=== PATIENT | female | born 1940 | race Caucasian/White ===

== ENCOUNTER → 2017-12-02 | Outpatient (CLI) | payer BC ==
[2017-12-02 12:58] LABS: BASO % 0.6 %; BASO ABS # 0.04 K/uL (0-0.2); EOS % 2.3 %; EOS ABS # 0.15 K/uL (0-0.5); HEMATOCRIT 44.5 % (37-47); HEMOGLOBIN 14.3 g/dL (12.0-16.0); IG# 0.01 K/uL (0.00-0.02); LYMPH % 14.6 %; LYMPH ABS # 0.94 K/uL (1.2-3.4); MEAN CELL VOLUME 93.1 fL (80-100); MEAN CORPUSCULAR HEMOGLOBIN 29.9 pg (25-34); MEAN CORPUSCULAR HGB CONC 32.1 g/dl (32-36); MEAN PLATELET VOLUME 11.2 fL (7.4-10.4); MONO % 8.2 %; MONO ABS # 0.53 K/uL (0.11-0.59); NEUT % 74.1 %; NEUT ABS # 4.77 K/uL (1.4-6.5); PLATELET COUNT 210 K/uL (130-400); RED CELL DISTRIBUTION WIDTH CV 14.1 % (11.5-14.5); RED CELL DISTRIBUTION WIDTH SD 47.9 fL (36.4-46.3); WHITE BLOOD COUNT 6.44 K/uL (4.8-10.8)
[2017-12-02 13:30] LABS: ALBUMIN 4.2 gm/dl (3.4-5.0); ALKALINE PHOSPHATASE 74 U/L (45-117); ALT/SGPT 27 U/L (12-78); AST/SGOT 26 U/L (15-37); BLOOD UREA NITROGEN 20 mg/dl (7-18); CALCIUM 9.1 mg/dl (8.5-10.1); CARBON DIOXIDE 27 mmol/L (21-32); CHOLESTEROL 158 mg/dl (0-200); CREATININE 1.02 mg/dl (0.60-1.20); GLUCOSE 111 mg/dl (70-99); LDL CHOLESTEROL CALCULATED 83 mg/dl; SODIUM 141 mmol/L (136-145); TOTAL PROTEIN 7.1 gm/dl (6.4-8.2)
== END | disposition home or self-care (01) ==
LOC: C.LABMFLN 09:43
PROVIDERS: ATTEND Family Medicine
DX: E78.5 Hyperlipidemia, unspecified (principal); M70.71 Other bursitis of hip, right hip

== ENCOUNTER 2022-07-31 04:57 | Observation (INO) ==
--- NOTE | 2022-07-15 16:11 | PAT Medication Instructions ---
Medication Instructions Date of Service July 15, 2022 Home Medications Medication Instructions Recorded albuterol sulfate 90 mcg/actuation 2 puff inhalation Q6H PRN 03/20/21 aerosol inhaler (ProAir HFA) shortness of breath or wheezing #8.5 grams buspirone 5 mg tablet 10 mg PO BID #120 tabs 09/20/21 hydrocodone 7.5 mg-acetaminophen 1 tab PO Q6H PRN pain #120 tabs 06/10/22 325 mg tablet cyclobenzaprine 10 mg tablet 10 mg PO TID #270 tabs 07/08/22 lisinopril 5 mg tablet See Rx Instructions PO DAILY #60 07/08/22 tabs albuterol sulfate 90 mcg/actuation aerosol inhaler (ProAir HFA) 2 puff inhalation Q6H PRN buspirone 5 mg tablet 10 mg PO BID hydrocodone 7.5 mg-acetaminophen 325 mg tablet 1 tab PO Q6H PRN cyclobenzaprine 10 mg tablet 10 mg PO TID lisinopril 5 mg tablet See Rx Instructions PO DAILY aspirin 81 mg tablet,delayed release 81 mg PO 3XWK brimonidine 0.2 % eye drops 1 drp ophthalmic (eye) BID citalopram 40 mg tablet 40 mg PO QAM clonazepam 1 mg tablet 1 mg PO QAM meclizine 25 mg tablet 12.5 mg PO TID omeprazole 40 mg capsule,delayed release 40 mg PO DAILY PRN pravastatin 10 mg tablet 10 mg PO QAM Continue as directed aspirin 81 mg tablet,delayed release 81 mg PO 3XWK (unless directed otherwise by surgeon) DO NOT take the morning of surgery cyclobenzaprine 10 mg tablet 10 mg PO TID lisinopril 5 mg tablet See Rx Instructions PO DAILY Take morning of surgery With a small sip of water, OTHERWISE NOTHING TO EAT OR DRINK AFTER MIDNIGHT: albuterol sulfate 90 mcg/actuation aerosol inhaler (ProAir HFA) 2 puff inhalation Q6H PRN(use if needed; please bring with you to hospital day of surgery if possible) buspirone 5 mg tablet 10 mg PO BID hydrocodone 7.5 mg-acetaminophen 325 mg tablet 1 tab PO Q6H PRN(if needed) brimonidine 0.2 % eye drops 1 drp ophthalmic (eye) BID citalopram 40 mg tablet 40 mg PO QAM clonazepam 1 mg tablet 1 mg PO QAM meclizine 25 mg tablet 12.5 mg PO TID omeprazole 40 mg capsule,delayed release 40 mg PO DAILY PRN(if needed) pravastatin 10 mg tablet 10 mg PO QAM Take evening before surgery albuterol sulfate 90 mcg/actuation aerosol inhaler (ProAir HFA) 2 puff inhalation Q6H PRN(if needed) buspirone 5 mg tablet 10 mg PO BID hydrocodone 7.5 mg-acetaminophen 325 mg tablet 1 tab PO Q6H PRN(if needed) cyclobenzaprine 10 mg tablet 10 mg PO TID brimonidine 0.2 % eye drops 1 drp ophthalmic (eye) BID meclizine 25 mg tablet 12.5 mg PO TID Other Notes If you have any questions please call us at [phone] or [phone] or [phone] or [phone]
--- NOTE | 2022-07-19 11:59 | Anesthesiology Consultation ---
Date of Service July 19, 2022 Assessment & Plan (1) Encounter for pre-operative examination: - COVID screening: Per assessment on 07/19: No known COVID-19 positive contacts or current COVID-19 related symptoms. Travel screen negative. Patient vaccinated. At surgeon discretion if preop Covid testing being done. - Outpatient joint assessment: Pt currently scheduled for inpatient pathway. If surgeon requests review for outpatient joint pathway, patient is not recommended candidate for outpatient joint program from anesthesia standpoint. - Patient acceptable risk for surgery pending surgeon-ordered cardiology preop evaluation ([facility], appt 07/25). Chart Review Chart Review: Patient seen in Pre Admission Testing Teaching & Discussion Pre-Anesthesia Teaching/Discussion Notes: Instructed NPO after midnight before surgery,except medications with 15 cc of water. Medication instructions provided according to the PAT guidelines. History Surgery Operation Date: 07/31/22 10:15 Proposed Procedures p Right Total Knee Arthroplasty - Marcello Martinez MD Height/Weight Height: 5 ft 5 in Weight: 83.7 kg Allergies Allergy/AdvReac Type Severity Reaction Status Date / Time Penicillins Allergy Intermediate Hives Verified 07/16/22 10:44 Sulfa (Sulfonamide Allergy Intermediate Hives Verified 07/16/22 10:44 Antibiotics) Medications Home Medications Medication Instructions Recorded Confirmed Last Taken albuterol sulfate 90 mcg/actuation 2 puff inhalation Q6H PRN 03/20/21 07/16/22 Unknown aerosol inhaler (ProAir HFA) shortness of breath or wheezing #8.5 grams buspirone 5 mg tablet 10 mg PO BID #120 tabs 09/20/21 07/16/22 Unknown hydrocodone 7.5 mg-acetaminophen 1 tab PO Q6H PRN pain #120 tabs 06/10/22 07/16/22 Unknown 325 mg tablet cyclobenzaprine 10 mg tablet 10 mg PO TID #270 tabs 07/08/22 07/16/22 Unknown lisinopril 5 mg tablet See Rx Instructions PO DAILY #60 07/08/22 07/16/22 Unknown tabs aspirin 81 mg tablet,delayed 81 mg PO 3XWK 07/15/22 07/16/22 Unknown release brimonidine 0.2 % eye drops 1 drp ophthalmic (eye) BID 07/15/22 07/16/22 Unknown citalopram 40 mg tablet 40 mg PO QAM 07/15/22 07/16/22 Unknown clonazepam 1 mg tablet 1 mg PO QAM 07/15/22 07/16/22 Unknown meclizine 25 mg tablet 12.5 mg PO TID 07/15/22 07/16/22 Unknown omeprazole 40 mg capsule,delayed 40 mg PO DAILY PRN Acid Reflux 07/15/22 07/16/22 Unknown release pravastatin 10 mg tablet 10 mg PO QAM 07/15/22 07/16/22 Unknown walker with seat and wheels #1 ea 07/16/22 07/16/22 Unknown Past Medical History Medical History Bursitis of hip, right Cerebral microvascular disease PCP monitoring, plan for future neuro evaluation Chronic back pain Depression with anxiety Glaucoma HTN (hypertension) Hyperlipidemia Macular degeneration Osteoarthritis Vertigo Exercise / Class Metabolic Activity II 4-5 Yardwork/Stairs/Walk up hill (one FS (no CP, no SOB)) Past Family History Family History Son Stroke Daughter Colitis Father Diabetes Mother Colorectal cancer Aunt Breast cancer Grandmother (Maternal) Myocardial infarction Other No family history of adverse response to anesthesia Denies family history of Ovarian cancer Prostate cancer Past Surgical History Surgical History History of arthroscopy of left knee meniscus repair History of bilateral cataract extraction History of bilateral tubal ligation History of carpal tunnel surgery of left wrist History of colonoscopy History of hysterectomy History of surgery gallstones removal (denies cholecystectomy) History of tonsillectomy and adenoidectomy History of tooth extraction all upper teeth removed S/P pericardial window creation 2001 Past Anesthesia History No Hx of Anesthesia Complications and No Family Hx of Anesthesia Complications History of PONV No Hx of PONV and No Hx of Motion Sickness Social History Smoking Status: Never smoker Do You Dip or Chew Tobacco: No Hx Alcohol Use: Yes Alcohol type: wine alcohol intake frequency: holidays/special occasions only Hx Substance Use: No substance use type: does not use Review of Systems Patient denies chest pain, shortness of breath, dyspnea on exertion, fever, chills, cough, wheezing, palpitations. Physical Exam Vital Signs VITALS BP 111/74 P 87 TEMP 99.1 SP02 95%RA RESP 18 PHYSICAL Full cervical extension range of motion. Full TMJ range of motion. TMD 3.5 finger breaths Mallampati Score 1 Dentition: full upper plate Lungs: clear throughout to auscultation Cardiac: regular rate and rhythm, no murmurs noted Spine: normal Carotid arteries: negative bruit Extremities: no edema Lab Results Anesthesia Preop Results Results Anesthesia Widget: WBC 5.68 K/ul (4.8-10.8) 07/11/22 Hgb 15.2 g/dl (12.0-16.0) 07/11/22 Hct 48.0 % (37.0-47.0) H 07/11/22 Plt 150 K/uL (130-400) 07/11/22 Na 142 mmol/L (136-145) 07/11/22 K 4.1 mmol/L (3.5-5.1) 07/11/22 Cl 105 mmol/L (98-107) 07/11/22 CO2 31 mmol/L (21-32) 07/11/22 BUN 19 mg/dl (6-23) 07/11/22 Creat 0.98 mg/dl (0.6-1.2) 07/11/22 Glucose Level 93 mg/dl (70-99(Fasting)) 07/11/22 PT 10.6 Seconds (9.0-12.0) 07/19/22 PTT 29.7 Seconds (21.0-31.0) 07/19/22 INR 1.0 (0.9-1.1) 07/19/22 Urine Color Yellow 07/11/22 Urine Appearance Clear (Clear) 07/11/22 Urine pH 6.5 (4.5-7.5) 07/11/22 Urine Specific Novelty 1.015 (1.000-1.030) 07/11/22 Urine Protein Negative (Negative) 07/11/22 Urine Glucose (UA) Negative (Negative) 07/11/22 Urine Ketones Negative (Negative) 07/11/22 Urine Blood Negative (Negative) 07/11/22 Urine Nitrite Negative (Negative) 07/11/22 Urine Bilirubin Negative (Negative) 07/11/22 Urine Urobilinogen Negative (Negative) 07/11/22 Urine Leukocyte Esterase Trace (Negative) H 07/11/22 Urine WBC (Auto) 1-5 /hpf (0-5) 07/11/22 Urine RBC (Auto) 0-4 /hpf (0-4) 07/11/22 Urine Hyaline Casts (Auto) 0 /lpf (0-5) 07/11/22 Urine Epithelial Cells (Auto) 5-10 /lpf (0-5) H 07/11/22 Urine Bacteria (Auto) Negative (Negative) 07/11/22 Blood Type O Positive 07/19/22 Antibody Screen NEGATIVE 07/19/22 Testing Laboratory Results 07/11/22 WBC 5.68 H/H 15.2/48.0 PLATELETS 150 SODIUM 142 POTASSIUM 4.1 CHLORIDE 105 CO2 31 BUN 19 CREATININE 0.98 GLUCOSE 93 UA negative Electrocardiogram Date: 06/04/22 NSR at 74bpm. High QRS voltage may be normal variant or due to LVE. Inferior infarct, age undetermined. Chest X-Ray Date: 07/19/22 FINDINGS: Lung lungs are mildly diminished. Bibasilar densities likely reflect atelectasis or crowding of vasculature. There is no evidence for pulmonary edema. There is no consolidation. There is no pneumothorax or pleural effusion. There is mild cardiomegaly. IMPRESSION: No acute cardiopulmonary findings. Other Testing Brain MRI (07/08/22) No acute intracranial abnormality is identified. Mild global volume loss. NS cerebral white matter foci of T2/FLAIR hyperintensity, most commonly associated with chronic small vessel disease. COVID-19 Risk Screen Screening Information COVID-19 Screen Date: 07/19/22 Exposure 21 Days Family/Household +COVID Last 21 Days: No Exposure 10 Days Any COVID Exposure Last 10 Days: No Symptoms Last 10 Days Experienced COVID Sx Last 10 Days: No + COVID 0-90 Days COVID + in Last 0-90 Days: No
--- NOTE | 2022-07-30 19:17 | History & Physical Report ---
Date of Service July 30, 2022 Assessment & Plan (1) Primary osteoarthritis of right knee: Plan: Treatment option discussed with patient. She would like to proceed with surgical intervention. Risks, benefits and alternatives to surgery including but not limited to infection, DVT, pain, stiffness, need for revision surgery, damage to blood vessels, damage to nerves, PE, , were discussed with the patient and they wish to proceed. Plan on right total knee arthroplasty scheduled for [facility] on 07/31/[address] Martinez. All questions answered. Plan on aspirin 81mg twice daily for 1 mo post op for DVT prophylaxis. Plan on outpatient PT. Patient will follow up post op. History of Present Illness Chief Complaint: Right knee pain Primary Care Provider: Sarbjit Ngo DO 81yo female with PMHx significant for HTN, high cholesterol, anxiety, back pain who presents with ongoing right knee pain. Pain is interfering with her daily activity. She has failed conservative measures and would like to proceed with surgical intervention. Patient denies headaches, sweats, fevers, chills, double vision, blurred vision, cough, sore throat, dysphagia, chest pain, sob, wheezing, n/v/d/c, numbness, tingling, fatigue, urinary symptoms, mood disorders. ROS positive for right knee pain and stiffness. Allergies Allergy/AdvReac Type Severity Reaction Status Date / Time Penicillins Allergy Intermediate Hives Verified 07/25/22 13:04 Sulfa (Sulfonamide Allergy Intermediate Hives Verified 07/25/22 13:04 Antibiotics) Home Medications Medication Instructions Recorded Confirmed Type albuterol sulfate 90 mcg/actuation 2 puff inhalation Q6H PRN 03/20/21 07/25/22 Rx aerosol inhaler (ProAir HFA) shortness of breath or wheezing #8.5 grams buspirone 5 mg tablet 10 mg PO BID #120 tabs 09/20/21 07/25/22 Rx hydrocodone 7.5 mg-acetaminophen 1 tab PO Q6H PRN pain #120 tabs 06/10/22 07/25/22 Rx 325 mg tablet cyclobenzaprine 10 mg tablet 10 mg PO TID #270 tabs 07/08/22 07/25/22 Rx lisinopril 5 mg tablet See Rx Instructions PO DAILY #60 07/08/22 07/25/22 Rx tabs aspirin 81 mg tablet,delayed 81 mg PO 3XWK 07/15/22 07/25/22 History release brimonidine 0.2 % eye drops 1 drp ophthalmic (eye) BID 07/15/22 07/25/22 History citalopram 40 mg tablet 40 mg PO QAM 07/15/22 07/25/22 History clonazepam 1 mg tablet 1 mg PO QAM 07/15/22 07/25/22 History meclizine 25 mg tablet 12.5 mg PO TID 07/15/22 07/25/22 History omeprazole 40 mg capsule,delayed 40 mg PO DAILY PRN Acid Reflux 07/15/22 07/25/22 History release pravastatin 10 mg tablet 10 mg PO QAM 07/15/22 07/25/22 History walker with seat and wheels #1 ea 07/16/22 07/25/22 Rx Past Med/Surg History Medical History Bursitis of hip, right Cerebral microvascular disease Chronic back pain Depression with anxiety Glaucoma HTN (hypertension) Hyperlipidemia Macular degeneration Osteoarthritis Vertigo Surgical History History of arthroscopy of left knee History of bilateral cataract extraction History of bilateral tubal ligation History of carpal tunnel surgery of left wrist History of colonoscopy History of hysterectomy History of surgery History of tonsillectomy and adenoidectomy History of tooth extraction S/P pericardial window creation Family History Son Stroke Daughter Colitis Father Diabetes Mother Colorectal cancer Aunt Breast cancer Grandmother (Maternal) Myocardial infarction Other No family history of adverse response to anesthesia Denies family history of Ovarian cancer Prostate cancer Social History Smoking Status: Never smoker Second Hand Exposure: Yes (Coworkers smoked); Hx Alcohol Use: Yes Alcohol type: wine Alcohol Intake Frequency: Monthly or Less Alcohol Intake Frequency Comment: very rarely Hx Substance Use: No Preferred Language: Kinyarwanda Communication Ability: Effective Visual Impairment: Limited Hearing Ability: Normal All Around Presser Required: No Beliefs That Will Affect Care: None marital status: Single Current Living Situation: Family Current Living Situation Comment: Lives with daughter current occupational status: retired current occupation: part-time at restaurant How many Children do You have: 3 Feels Safe at Home: Yes Childhood Exposure to Second-Hand Smoke: No Diet Comment: Regular diet caffeine: Yes (coffee, mint tea) during the past year weight has: decreased > 10 lbs Dental Care, Regularly: Yes Physical Activity Frequency: 1-2 Times per Week Seatbelt Use: always Sunscreen Use: Yes Do you think of yourself as: straight/heterosexual Gender Identity: Female Assistive Devices: Denture - Upper and Glasses Review of Systems All systems reviewed & are unremarkable except as noted in HPI & below Physical Exam Constitutional: well developed and well nourished; no acute distress Eyes: PERRL, conjunctivae normal, anicteric sclerae ENMT: external ear and nose normal, oropharynx normal Neck: trachea midline, no thyromegaly Respiratory: normal respiratory effort, lungs clear to auscultation Cardiovascular: RRR, no murmur, no edema Musculoskeletal: Right knee: Varus alignment. Moderate effusion. Medial joint line tenderness. ROM 15-120 degrees. Stable to valgus and varus stress. Skin: no rashes, warm and dry Neurologic: patellar DTR's 2+ bilat, sensation intact Psychiatric: A+Ox3, euthymic affect Results & Data Diagnostic Findings Right knee radiographs demonstrate endstage osteoarthritis, bone on bone medial compartment. There is tricompartmental arthritic changes with periarticular osteophytes and subchondral sclerosis.
[2022-07-31] MEDS ORDERED: ROPIVACAINE 0.5% HCL/PF 150 MG, BUPIVACAINE 0.75% MPF 20 ML, EPINEPHrine 30MG/30ML (OR ... INSTIL SCH (06:00)
[2022-07-31] MEDS ORDERED: dexAMETHasone 4 MG TAB PO SCH (06:00)
[2022-07-31] MEDS ORDERED: TRANEXAMIC ACID 1,000 MG **IV Intra-op IV SCH (06:00)
[2022-07-31] MEDS ORDERED: FAMOTIDINE 20 MG TAB PO SCH (06:00)
[2022-07-31] MEDS ORDERED: LR 500ML BOLUS, THEN 15ML/HR IV SCH (06:00)
[2022-07-31] MEDS ORDERED: METOCLOPRAMIDE HCL 10 MG TABLET PO SCH (06:00)
[2022-07-31] MEDS ORDERED: GABAPENTIN 300 MG CAP PO SCH (06:00)
[2022-07-31] MEDS ORDERED: VANCOMYCIN HCL 1,250 MG in SODIUM CHLORIDE 0.9% 250 ML IV SCH ×2 (06:00→19:45)
[2022-07-31] MEDS ORDERED: TRANEXAMIC ACID 1,000 MG **IV Pre-op IV SCH (06:00)
[2022-07-31] MEDS ORDERED: ACETAMINOPHEN 500 MG TAB PO SCH (06:00)
[2022-07-31] MEDS ORDERED: DEXAMETHASONE SOD INJ 4 MG/ML VIAL ONE (06:22)
[2022-07-31] MEDS ORDERED: BUPIVACAINE 0.5 % 5 MG/1 ML PF 10ML VIAL ONE (06:22)
[2022-07-31] MEDS ORDERED: BUPIVACAINE 0.25% PF 30 ML VIAL ONE (06:22)
[2022-07-31] MEDS ORDERED: EPINEPHrine INJ 1 MG/ML AMP ONE (06:22)
[2022-07-31] MEDS ORDERED: MIDAZOLAM HCL 1 MG/ML 2ML VIAL ONE (06:39)
[2022-07-31] MEDS ORDERED: fentaNYL citrate PF 100 MCG/2 ML VIAL ONE (06:39)
[2022-07-31] MEDS ORDERED: ORTHO JOINT ANESTHETIC ONE (06:49)
[2022-07-31] MEDS ORDERED: fentaNYL citrate PF 100 MCG/2 ML VIAL IV PRN (06:55)
[2022-07-31] MEDS ORDERED: ATROPINE SULFATE 0.1 MG/ML 10ML SYR IV PRN (06:55)
[2022-07-31] MEDS ORDERED: ePHEDrine sulfate 50 MG/ML AMP IV PRN (06:55)
[2022-07-31] MEDS ORDERED: ONDANSETRON INJ 2 MG/ML 2 ML VIAL IV PRN ×2 (06:55→10:39)
--- NOTE | 2022-07-31 07:03 | History & Physical Bridge Note ---
Date of Service July 31, 2022 History & Physical Bridge Note I have examined the patient, reviewed the History & Physical and in the interval since the performance of the History & Physical I have noted the following changes of clinical significance: no changes noted
[2022-07-31] MEDS ORDERED: LIDOCAINE 2% MPF LOCAL 5 ML VIAL ONE (07:23)
[2022-07-31] MEDS ORDERED: PROPOFOL IV EMULSION 10 MG/ML 20 ML VIAL IV ONE (07:23)
[2022-07-31] MEDS ORDERED: PHENYLEPHRINE 100MCG/ML 5ML SYR ONE (08:38)
--- NOTE | 2022-07-31 08:46 | Operative Report ---
Post Operative Report Pre & Post Diagnosis Operation Date: 07/31/22 07:00 Pre-Op Diagnosis: Primary Osteoarthritis or Right Knee Post-Op Diagnosis: Primary Osteoarthritis or Right Knee I identified the patient and participated in the time-out.: Yes Procedure Operation Date: 07/31/22 07:00 Actual Procedures p Right Total Knee Arthroplasty(Right), Camila Acticoat superficial wound VAC- Marcello Martinez MD Surgeon Marcello Martinez MD [employer] PAZ Estimated Blood Loss 5 Findings Consistent with Post-Op Diagnosis Specimens Bone cuts Drains 2 Hemovac Anesthesia Type MAC Spinal Regional Complications none Disposition Disposition: Recovery Room Indications 81-year-old female with progressive osteoarthritis right knee failed conservative management. Patient has tricompartment osteoarthritis [id number] medial compartment with a varus knee. Description of Procedure Patient taken to the operating room the size under spinal MAC regional block anesthesia. Patient was placed supine on the operating table. A pneumatic tourniquet was placed about the right upper thigh. The right lower extremity was prepped and draped in sterile fashion. Knee exam demonstrated 20 degree flexion contracture with flexion to 120 degrees. Stiff knee no pseudolaxity no instability small to moderate effusion. The leg was elevated exsanguinated with an Esmarch bandage and pneumatic tourniquet was raised to 325 millimeters of mercury. Skin incised sharply in longitudinal fashion. Subcutaneous flaps elevated. Incision was made through the medial retinaculum extending up in the mid third of the quadriceps tendon and down to the medial tibial tubercle. Intra-articular findings demonstrated tricompartmental osteoarthritis with chronic degenerative lateral meniscus tear and chronic medial meniscus tear with [id number] medial compartment with anteromedial bone wear. The Niko Niko triathlon total knee arthroplasty system was used. To expose the knee the infrapatellar fat pad was resected. The meniscal remnants and cruciate ligaments were resected. The anterior fat pad over the femur in the area of the anterior flange of the femoral component was resected. Lateral synovial bands release. The femur was exposed. An intramedullary drill hole was made into the canal. A guide lizzy was placed. Distal femoral cutting guide was adjusted to resect a 5 degree valgus cut with 10 millimeters distal femur resected. The knee was extended and a subperiosteal peel lateral release was performed around the patella. Patella width was measured and width was reproduced using a freehand cut technique and a 33 patella component. The 3 drill holes were made and the excess lateral facet was beveled off to prevent any impingement. Attention was taken back to the femur which was exposed with retractors and the femoral sizing guide was pinned in position. The drill holes were placed in 3 of external rotation to match epicondylar axis. Femur sized for a 4 component. The 4-in-1 cutting block was placed and then the anterior posterior and chamfer cuts are made. The tibia was then subluxed. The external tibial cutting guide was just to make a perpendicular cut to the long axis of the tibia below the most deficient bone loss side. A lamina residency coordinator was used and the flexion extension gaps were balanced. All posterior osteophytes removed. All meniscal remnants were resected. The tibia exposed and the trial tibial component size 4 was externally rotated in line with the tibial tubercle and pinned in position. The punch for stem was used. The notch cutting device was centered appropriately and the femoral notch cut was made. The femoral trial was inserted. Trial tibial inserts were placed and size 11 gave balanced ligaments through flexion and extension. Patella tracking was assessed. The patella tracked centrally. The trial components were then removed and the orthomix anesthetic cocktail was injected per protocol. The knee was then copiously irrigated with pulsatile lavage saline solution. Final components were then cemented with Simplex cement. Final components were Zion triathlon size right 4 posterior stabilized femoral component, for primary tibial baseplate, size 4 x 11 mm posterior stabilized X.3 polyethylene tibial bearing insert, S 33 x 9 mm symmetrical patella. After the cement cured the Betadine soak was used for 3 minutes. Further pulsatile lavage irrigation was then performed and 2 Hemovac drains were brought out laterally. The quadriceps tendon and medial retinaculum were closed with figure of 8 #1 Vicryl sutures. The knee was taken through full range of motion and the repair was secure. Knee range of motion was 0 through 130 degrees. The subcutaneous tissues were closed with 2-0 Vicryl sutures. Skin was closed with tico. Sterile dressings were applied. The patient tolerated the procedure well. Urbano Ring, application superficial wound VAC BRANDI was my physician sales assistant who participated as cutter first and was involved in all aspects of the procedure including patient positioning prepping and draping,leg positioning ,soft tissue retraction and instrument management and participated in the closing application of superficial wound VAC and will participate in postoperative care of the patient. The patient tolerated the procedure well. I attest to the content of the Intraoperative Record and any orders documented therein. Any exceptions are noted below.
[2022-07-31] MEDS ORDERED: MAGNESIUM HYDROXIDE SUSP 30 ML UDC PO PRN (10:39)
[2022-07-31] MEDS ORDERED: VANCOMYCIN CONSULT ACTIVE PRN (10:39)
[2022-07-31] MEDS ORDERED: PANTOprazole 40 MG TAB PO PRN (10:39)
[2022-07-31] MEDS ORDERED: METOCLOPRAMIDE HCL INJ 5 MG/ML 2 ML VIAL IV PRN (10:39)
[2022-07-31] MEDS ORDERED: NALOXONE HCL 0.4 MG/1 ML VIAL/CARP IV PRN (10:39)
[2022-07-31] MEDS ORDERED: bisacodyL 10 MG SUPP PR PRN (10:39)
[2022-07-31] MEDS ORDERED: ALBUTEROL HFA 8 GM INHALER INH PRN (10:39)
--- NOTE | 2022-07-31 10:40 | Anesthesiology Progress Note ---
Date of Service July 31, 2022 Anesthesia Post Procedure Vital Signs Vital Signs: Temp Pulse Pulse Resp BP Pulse Ox O2 Del Method 07/31/22 10:20 85 13 123/79 97 Nasal Cannula 07/31/22 10:05 36.3 C L 84 13 120/85 95 Nasal Cannula 07/31/22 09:55 87 20 120/83 97 Nasal Cannula 07/31/22 09:45 87 12 145/85 H 93 Oxymask 07/31/22 09:35 86 14 115/81 98 Oxymask 07/31/22 09:28 36.2 C L 85 13 115/78 97 Oxymask 07/31/22 05:40 36.8 C 91 H 18 152/87 H 94 Room Air O2 Flow Rate 07/31/22 10:20 2 07/31/22 10:05 2 07/31/22 09:55 4 07/31/22 09:45 4 07/31/22 09:35 10 07/31/22 09:28 10 07/31/22 05:40 Pain Intensity Right Knee: Pain Intensity: 7 Transfer of Care Handoff Completed per policy Notes Mental Status: alert / awake / arousable Patient Amnestic to Procedure: Yes Nausea / Vomiting: adequately controlled Pain: adequately controlled Airway Patency, RR, SpO2: stable & adequate BP & HR: stable & adequate Hydration State: stable & adequate Anesthetic Complications: no major complications apparent
--- NOTE | 2022-07-31 10:56 | Hospitalist Consultation ---
Date of Consultation July 31, 2022 Assessment & Plan (1) Status post total right knee replacement: -Pain control, perioperative abx, and DVT PPX per the primary team -The patient is currently afebrile, hemodynamically stable, and stable on RA -No intra-operative complications -Agree with am CBC and BMP tomorrow, we will follow -Thank you for allowing us to participate in the care of this patient, please reach out with any questions or concerns (2) GERD without esophagitis: -Agree with daily pantoprazole (3) HTN (hypertension): -Stable -Can continue daily lisinopril as long as renal function and electrolytes remain stable (4) Vertigo: -Can continue home meclizine, monitor for over-sedation (5) Hyperlipidemia: -Continue statin (6) Depression with anxiety: -Continue Buspar, celexa and Klonopin -Would recommend PCP attempt to wean the patient off of usp Klonopin therapy due to the patient's age Plan The patient was discussed with Dr. Pizano at the time of the consult Supervising Physician Co-Signing Physician Notes I personally saw and examined the patient. I verified all romeo points and agree with Jeanmarie Cutler PA-C with the following exceptions and/or additions: 81 year old female POD#0 right TKA. No acute concerns or questions noted by the patient. O/E HS RRR, no murmurs, Chest CTAB, Abdo SNT, NV intact distal to operation site A/P Pain/VTE/Bowel management per primary orthopedic team GERD - prescribed pantoprazole FRANKIE while here. Can be switched back to PRN at home. No current symptoms but takes omeprazole 1-2 times a week. Vertigo - recommended discussing weaning meclizine with her PCP as this actually makes your balance worse if using regularly History of Present Illness Reason for Consultation: Post-op medical management Requesting Physician: Marcello Martinez MD Attending Physician: Dr. Gallito Pizano History of Present Illness Shanelle is an 81 year old female with a PMH significant for Cerebrovascular Disease, Vertigo, Gait Disturbance, Lumbar Degenerative Disc Disease, Hypertension, Hyperlipidemia, Depression, Anxiety, and Osteoarthritis who presented to the [facility] OR on 07/31/22 for elective right Right Total Knee Arthroplasty with Dr. Martinez. Per review of the patient's vitals, she has been afebrile, hemodynamically stable, and is currently stable on 1L NC. Per the operative report, there were no reported intraoperative complications, EBL was listed as 5 cc, and anesthesia was listed as "[facility]". At the time of the exam the patient was resting in bed in no acute distress. She is still fatigued from the procedure but is awake and oriented. She has no complaints at the time of the exam. She denies a hx of JOSEPH or needing home O2 or HS CPAP/BiPAP and was never a smoker. I was able to turn her O2 off and she remained stable on RA. She confirms that she took her am dose of lisinopril this morning before coming to the hospital. Please refer to Dr. Pizano's attestation for any changes to the treatment plan Allergies Allergy/AdvReac Type Severity Reaction Status Date / Time Penicillins Allergy Intermediate Hives Verified 07/31/22 05:27 Sulfa (Sulfonamide Allergy Intermediate Hives Verified 07/31/22 05:27 Antibiotics) Home Medications Medication Instructions Recorded Confirmed Type albuterol sulfate 90 mcg/actuation 2 puff inhalation Q6H PRN 03/20/21 07/31/22 Rx aerosol inhaler (ProAir HFA) shortness of breath or wheezing #8.5 grams buspirone 5 mg tablet 10 mg PO BID #120 tabs 09/20/21 07/31/22 Rx hydrocodone 7.5 mg-acetaminophen 1 tab PO Q6H PRN pain #120 tabs 06/10/22 07/31/22 Rx 325 mg tablet cyclobenzaprine 10 mg tablet 10 mg PO TID #270 tabs 07/08/22 07/31/22 Rx lisinopril 5 mg tablet See Rx Instructions PO DAILY #60 07/08/22 07/31/22 Rx tabs aspirin 81 mg tablet,delayed 81 mg PO WK 07/15/22 07/31/22 History release brimonidine 0.2 % eye drops 1 drp ophthalmic (eye) BID 07/15/22 07/31/22 History citalopram 40 mg tablet (Celexa) 40 mg PO QAM 07/15/22 07/31/22 History clonazepam 1 mg tablet (Klonopin) 1 mg PO QAM 07/15/22 07/31/22 History meclizine 25 mg tablet 12.5 mg PO TID 07/15/22 07/31/22 History omeprazole 40 mg capsule,delayed 40 mg PO DAILY PRN Acid Reflux 07/15/22 07/31/22 History release pravastatin 10 mg tablet 10 mg PO QAM 07/15/22 07/31/22 History walker with seat and wheels #1 ea 07/16/22 07/25/22 Rx Patient History Medical History Bursitis of hip, right Cerebral microvascular disease Chronic back pain Depression with anxiety Glaucoma HTN (hypertension) Hyperlipidemia Macular degeneration Osteoarthritis Vertigo Surgical History History of arthroscopy of left knee History of bilateral cataract extraction History of bilateral tubal ligation History of carpal tunnel surgery of left wrist History of colonoscopy History of hysterectomy History of surgery History of tonsillectomy and adenoidectomy History of tooth extraction S/P pericardial window creation Family History Son Stroke Daughter Colitis Father Diabetes Mother Colorectal cancer Aunt Breast cancer Grandmother (Maternal) Myocardial infarction Other No family history of adverse response to anesthesia Denies family history of Ovarian cancer Prostate cancer Social History Smoking Status: Never smoker Second Hand Exposure: Yes (Coworkers smoked); Do You Dip or Chew Tobacco: No; Tobacco Cessation Education Requested by Patient: No Hx Alcohol Use: Yes Alcohol type: wine Alcohol Intake Frequency: Monthly or Less Alcohol Intake Frequency Comment: very rarely Hx Substance Use: No Preferred Language: Tajik Communication Ability: Effective Visual Impairment: Limited Hearing Ability: Normal Chief Orthoptist Required: No Beliefs That Will Affect Care: None marital status: Single Current Living Situation: Family Current Living Situation Comment: Lives with daughter current occupational status: retired current occupation: part-time at restaurant How many Children do You have: 3 Other Information That Helps Us Care for You: No Feels Safe at Home: Yes Safety Concerns: Feels Safe At This Time Childhood Exposure to Second-Hand Smoke: No Diet Comment: Regular diet caffeine: Yes (coffee, mint tea) during the past year weight has: decreased > 10 lbs Dental Care, Regularly: Yes Physical Activity Frequency: 1-2 Times per Week Seatbelt Use: always Sunscreen Use: Yes Do you think of yourself as: straight/heterosexual Gender Identity: Female Assistive Devices: Walker Physical Exam Physical Exam: Physical Exam: General: In no acute distress, stated age, well-nourished, good hygiene HEENT: Normocephalic, atraumatic, no scleral icterus, pupils around round, symmetrical, and reactive to light, moist mucus membranes, trachea midline, no thyromegaly Chest/Pulm: No respiratory distress, symmetrical chest expansion, clear breath sounds throughout Cardiac: RRR, no murmurs noted Abdomen: Negative for ascites and bruising, normoactive bowel sounds, soft, non-tender to palpation throughout Musculoskeletal: RLE currently in brace with drain in place, no signs of bleeding or infection, patient with intake sensation and motor function in the LE's Extremities: Radial, dorsalis pedis, and posterior tibial pulses are intact and symmetrical, no edema noted in the [facility]'s Skin: Warm, dry, no rashes , lesions, or scars noted Neuro: Alert and oriented to person, place, month, year, and president, no focal defects, no tremors noted Psych: No acute distress, calm and cooperative during the exam Results & Data Results & Data Vital Signs (Past 12 Hours) Vital Signs Temp Pulse Pulse Resp BP Pulse Ox O2 Del Method 07/31/22 10:39 36.6 C 84 16 128/82 95 Nasal Cannula 07/31/22 10:20 85 13 123/79 97 Nasal Cannula 07/31/22 10:05 36.3 C L 84 13 120/85 95 Nasal Cannula 07/31/22 09:55 87 20 120/83 97 Nasal Cannula 07/31/22 09:45 87 12 145/85 H 93 Oxymask 07/31/22 09:35 86 14 115/81 98 Oxymask 07/31/22 09:28 36.2 C L 85 13 115/78 97 Oxymask 07/31/22 05:40 36.8 C 91 H 18 152/87 H 94 Room Air O2 Flow Rate 07/31/22 10:39 1 07/31/22 10:20 2 07/31/22 10:05 2 04/05/23 09:55 4 07/31/22 09:45 4 07/31/22 09:35 10 07/31/22 09:28 10 07/31/22 05:40 PG Care Time/CCT Total # of Minutes Spent Total Time Spent with Patient: Total time spent is greater than 50% in coordination of care (as documented) at patient's floor/unit and/or counseling patient: Coding [place] [address] IN/OBS CONSULT LVL 3,45M Patient Type Established Medical Decision Making Moderate Complexity Diagnoses Status post total right knee replacement Z96.651 GERD without esophagitis K21.9 HTN (hypertension) I10 Vertigo R42 Hyperlipidemia E78.5 Depression with anxiety F41.8
[2022-07-31] MEDS: SODIUM CHLORIDE 0.9% 1000ML 1,000 ML IV SCH ×2 (11:06→21:20)
--- NOTE | 2022-07-31 11:14 | XRay Report ---
RIGHT KNEE 2 VIEWS History: Right total knee arthroplasty. Degenerative arthritis. Postop. FINDINGS: The patient is status post a right total knee arthroplasty. The hardware is intact. No frac ture or dislocation. Skin tico and surgical drains are in place. IMPRESSION: Right total knee arthroplasty. No evidence for hardware complication. ACT 112: Negative or not required by law. Electronically signed by: Camden Stovall M.D. 07/31/2022 11:13 AM
[2022-07-31] MEDS ORDERED: clonazePAM 1 MG TAB PO PRN (11:21)
[2022-07-31] MEDS: ACETAMINOPHEN 500 MG TAB PO SCH ×2 (14:04→21:02)
[2022-07-31] MEDS: CYCLOBENZAPRINE HCL 10 MG TAB PO SCH ×2 (14:04→21:00)
[2022-07-31] MEDS: HYDROmorphone INJ 0.5 MG/0.5 ML SYR IV PRN (14:07)
[2022-07-31] MEDS: BRIMONIDINE TARTRATE 0.2% 5ML OP SCH (16:35)
[2022-07-31] MEDS: MECLIZINE 12.5 MG TAB PO PRN (19:31)
[2022-07-31] MEDS: oxyCODONE HCL IR 5 MG TAB (IMMEDIATE RELEASE) PO PRN ×2 (19:45→23:50)
[2022-07-31] MEDS ORDERED: VANCOMYCIN HCL 1,250 MG in SODIUM CHLORIDE 0.9% 500 ML IV SCH (19:45)
[2022-07-31] MEDS: ASPIRIN 81 MG ECTAB PO SCH (20:59)
[2022-07-31] MEDS: busPIRone 5 MG TAB PO SCH (20:59)
[2022-07-31] MEDS: lisinopril 5 MG TAB PO SCH (21:00)
[2022-07-31] MEDS: DOCUSATE SODIUM 100 MG CAP PO SCH (21:01)
[2022-07-31] MEDS: SENNA 8.6 MG TAB PO SCH (21:01)
[2022-07-31] MEDS: PANTOprazole 40 MG TAB PO SCH (21:36)
[2022-08-01] MEDS: ACETAMINOPHEN 500 MG TAB PO SCH ×3 (05:02→20:36)
[2022-08-01 07:37] LABS: Hematocrit (blood only) 35.6 % (37.0-47.0); Hemoglobin 11.6 g/dl (12.0-16.0); Mean Corpuscular Hgb Conc 32.6 g/dL (32.0-36.0); Mean Platelet Volume 11.3 fL (9.4-12.4); Platelet Count 199 K/uL (130-400); RDW Standard Deviation 45.8 fL (36.4-46.3); White Blood Count 14.09 K/ul (4.8-10.8)
[2022-08-01] MEDS: BRIMONIDINE TARTRATE 0.2% 5ML OP SCH ×2 (07:38→17:04)
[2022-08-01] MEDS: CYCLOBENZAPRINE HCL 10 MG TAB PO SCH ×3 (07:38→20:36)
[2022-08-01] MEDS: busPIRone 5 MG TAB PO SCH ×2 (07:38→20:36)
[2022-08-01] MEDS: CITALOPRAM 40 MG TAB PO SCH (07:38)
[2022-08-01] MEDS: ASPIRIN 81 MG ECTAB PO SCH ×2 (07:38→20:36)
[2022-08-01] MEDS: PRAVASTATIN SOD 10 MG TAB PO SCH (07:39)
[2022-08-01] MEDS: MULTIVITAMIN TAB PO SCH (07:39)
[2022-08-01] MEDS: MECLIZINE 12.5 MG TAB PO PRN (07:39)
[2022-08-01] MEDS: lisinopril 10 MG TAB PO SCH (07:39)
[2022-08-01] MEDS: DOCUSATE SODIUM 100 MG CAP PO SCH ×2 (07:39→20:36)
--- NOTE | 2022-08-01 07:51 | Orthopedic Progress Note ---
Date of Service August 01, 2022 Assessment & Plan (1) Status post total right knee replacement: Plan: Postop day #1 right total knee arthroplasty -PT/OT -DVT prophylaxis: SCDs, teds, aspirin 81 mg twice daily -A.m. labs are pending -Pain management as written -Discharge planning: Plan on discharge when stable. Patient planning on inpatient rehab. Case management consult has been placed. Admission and Anticipated Discharge Date Admission Date: July 31, 2022 Subjective Patient is postop day 1 right total knee arthroplasty. Overall she is doing well this morning. Pain is controlled. Denies chest pain, shortness of breath, nausea/vomiting/diarrhea, headaches or dizziness. She is planning on going to inpatient rehab. Review of Systems Review of Systems: All systems reviewed & are unremarkable except as noted in Subjective Physical Exam Physical Exam: Right knee: Dressing is clean, dry, intact. No calf tenderness. Toes are mobile with good dorsiflexion. Able to straight leg raise. Distally neurovascular status and sensation grossly intact. Results & Data Vital Signs (Past 12 Hours) Vital Signs Temp Pulse Resp BP Pulse Ox O2 Del Method 08/01/22 07:45 36.5 C 86 16 157/95 H 97 Room Air 08/01/22 02:52 36.5 C 87 18 129/84 93 Room Air 07/31/22 22:06 36.5 C 89 16 142/89 H 94 Room Air
[2022-08-01 07:55] LABS: BUN Creatinine Ratio 26.5 (10-20); Calcium 8.7 mg/dl (8.6-10.3); Est GFR (African American) 60.2 ml/min; Est GFR (Non-African American) 51.9 ml/min; Potassium 4.3 mmol/L (3.5-5.1)
[2022-08-01] MEDS: PANTOprazole 40 MG TAB PO SCH (09:04)
[2022-08-01] MEDS: oxyCODONE HCL IR 5 MG TAB (IMMEDIATE RELEASE) PO PRN ×2 (12:15→20:38)
[2022-08-01] MEDS: HYDROmorphone INJ 0.5 MG/0.5 ML SYR IV PRN (17:04)
[2022-08-01] MEDS: lisinopril 5 MG TAB PO SCH (20:36)
[2022-08-01] MEDS: SENNA 8.6 MG TAB PO SCH (20:36)
[2022-08-01] MEDS ORDERED: clonazePAM 1 MG TAB PO SCH (21:00)
[2022-08-02] MEDS: ACETAMINOPHEN 500 MG TAB PO SCH (06:20)
--- NOTE | 2022-08-02 07:07 | Orthopedic Progress Note ---
Date of Service August 02, 2022 Assessment & Plan (1) Status post total right knee replacement: Plan: Postop day #2 right total knee arthroplasty -PT/OT -DVT prophylaxis: SCDs, teds, aspirin 81 mg twice daily -Pain management as written -Discharge planning: Plan on discharge when stable. Patient planning on inpatient rehab. Patient planning on going to [place]. Plan for discharge today. Admission and Anticipated Discharge Date Admission Date: July 31, 2022 Subjective Patient is postop day #2 right total knee arthroplasty. Her pain is controlled. She is doing well this morning. No complaints. Denies chest pain, shortness of breath, nausea/vomiting/diarrhea, lightheadedness or dizziness. Review of Systems Review of Systems: All systems reviewed & are unremarkable except as noted in Subjective Physical Exam Physical Exam: Right knee: Dressing is clean, dry, intact. No calf tenderness. Toes are mobile with good dorsiflexion. Able to straight leg raise. Distally neurovascular status and sensation grossly intact. Constitutional: WD/WN, vitals as above Results & Data Vital Signs (Past 12 Hours) Vital Signs Temp Pulse Resp BP Pulse Ox O2 Del Method 08/01/22 20:33 36.8 C 82 18 130/77 95 Room Air
[2022-08-02] MEDS: oxyCODONE HCL IR 5 MG TAB (IMMEDIATE RELEASE) PO PRN (07:36)
[2022-08-02] MEDS: DOCUSATE SODIUM 100 MG CAP PO SCH (08:33)
[2022-08-02] MEDS: busPIRone 5 MG TAB PO SCH (08:33)
[2022-08-02] MEDS: ASPIRIN 81 MG ECTAB PO SCH (08:33)
[2022-08-02] MEDS: BRIMONIDINE TARTRATE 0.2% 5ML OP SCH (08:33)
[2022-08-02] MEDS: PANTOprazole 40 MG TAB PO SCH (08:34)
[2022-08-02] MEDS: lisinopril 10 MG TAB PO SCH (08:34)
[2022-08-02] MEDS: MULTIVITAMIN TAB PO SCH (08:34)
[2022-08-02] MEDS: CITALOPRAM 40 MG TAB PO SCH (08:34)
[2022-08-02] MEDS: PRAVASTATIN SOD 10 MG TAB PO SCH (08:34)
[2022-08-02] MEDS: CYCLOBENZAPRINE HCL 10 MG TAB PO SCH (08:48)
--- NOTE | 2022-08-02 10:17 | Discharge Summary ---
Date of Service August 02, 2022 Admission HPI Per Admitting Provider 81yo female with PMHx significant for HTN, high cholesterol, anxiety, back pain who presents with ongoing right knee pain. Pain is interfering with her daily activity. She has failed conservative measures and would like to proceed with surgical intervention. Patient denies headaches, sweats, fevers, chills, double vision, blurred vision, cough, sore throat, dysphagia, chest pain, sob, wheezing, n/v/d/c, numbness, tingling, fatigue, urinary symptoms, mood disorders. ROS positive for right knee pain and stiffness. Admission Exam Per Admitting Provider Constitutional: well developed and well nourished; no acute distress Eyes: PERRL, conjunctivae normal, anicteric sclerae ENMT: external ear and nose normal, oropharynx normal Neck: trachea midline, no thyromegaly Respiratory: normal respiratory effort, lungs clear to auscultation Cardiovascular: RRR, no murmur, no edema Musculoskeletal: Right knee: Varus alignment. Moderate effusion. Medial joint line tenderness. ROM 15-120 degrees. Stable to valgus and varus stress. Skin: no rashes, warm and dry Neurologic: patellar DTR's 2+ bilat, sensation intact Psychiatric: A+Ox3, euthymic affect Principal Diagnosis Right knee osteoarthritis Discharge Exam Right knee: Dressing is clean, dry, intact. No calf tenderness. Toes are mobile with good dorsiflexion. Able to straight leg raise. Distally neurovascular status and sensation grossly intact. Constitutional WD/WN, vitals as above Discharge Data Allergies Allergy/AdvReac Type Severity Reaction Status Date / Time Penicillins Allergy Intermediate Hives Verified 07/31/22 05:27 Sulfa (Sulfonamide Allergy Intermediate Hives Verified 07/31/22 05:27 Antibiotics) Consultations 07/26/22 10:56 Consult Hospitalist Routine Procedures Performed Operation Date: 07/31/22 07:00 Actual Procedures p Right Total Knee Arthroplasty(Right) - Marcello Martinez MD Ordered Studies 07/31/22 05:00 US - OR guided needle placemen Routine Hospital Course (1) Status post total right knee replacement: Postop day #2 right total knee arthroplasty -PT/OT -DVT prophylaxis: SCDs, teds, aspirin 81 mg twice daily -Pain management as written -Discharge planning: Plan on discharge when stable. Patient planning on inpatient rehab. Patient planning on going to [place]. Plan for discharge today. Postop day #1 right total knee arthroplasty -PT/OT -DVT prophylaxis: SCDs, teds, aspirin 81 mg twice daily -A.m. labs are pending -Pain management as written -Discharge planning: Plan on discharge when stable. Patient [facility]. Case management consult has been placed. Lab Results 07/31/22 08/01/22 08/01/22 Range/Units Unknown 06:47 06:47 WBC 14.09 H (4.8-10.8) K/ul RBC 4.00 L (4.20-5.40) M/uL Hgb 11.6 L (12.0-16.0) g/dl Hct 35.6 L (37.0-47.0) % MCV 89.0 (80.0-100.0) fL MCH 29.0 (25.0-34.0) pg MCHC 32.6 (32.0-36.0) g/dL RDW Std Deviation 45.8 (36.4-46.3) fL RDW Coeff of John 14.0 (11.5-14.5) % Plt Count 199 (130-400) K/uL MPV 11.3 (9.4-12.4) fL Sodium 138 (136-145) mmol/L Potassium 4.3 (3.5-5.1) mmol/L Chloride 105 (98-107) mmol/L Carbon Dioxide 27 (21-32) mmol/L Anion Gap 6 (3-11) BUN 27 H (6-23) mg/dl Creatinine 1.02 (0.6-1.2) mg/dl Est Cr Clr Drug Dosing 47.0 ml/min Est GFR ( Amer) 60.2 ml/min Est GFR (Non-Af Amer) 51.9 ml/min BUN/Creatinine Ratio 26.5 H (10-20) Glucose 122 H (70-99(Fasting)) mg/dl Calcium 8.7 (8.6-10.3) mg/dl SARS-CoV-2, RNA, NAAT NEGATIVE (NEGATIVE) 08/02/22 Range/Units 08:29 WBC (4.8-10.8) K/ul RBC (4.20-5.40) M/uL Hgb (12.0-16.0) g/dl Hct (37.0-47.0) % MCV (80.0-100.0) fL MCH (25.0-34.0) pg MCHC (32.0-36.0) g/dL RDW Std Deviation (36.4-46.3) fL RDW Coeff of John (11.5-14.5) % Plt Count (130-400) K/uL MPV (9.4-12.4) fL Sodium (136-145) mmol/L Potassium (3.5-5.1) mmol/L Chloride (98-107) mmol/L Carbon Dioxide (21-32) mmol/L Anion Gap (3-11) BUN (6-23) mg/dl Creatinine (0.6-1.2) mg/dl Est Cr Clr Drug Dosing ml/min Est GFR ( Amer) ml/min Est GFR (Non-Af Amer) ml/min BUN/Creatinine Ratio (10-20) Glucose (70-99(Fasting)) mg/dl Calcium (8.6-10.3) mg/dl SARS-CoV-2, RNA, NAAT NEGATIVE (NEGATIVE) Total Time Total Time Spent Total Time Spent (In Minutes): 20 Discharge Plan Discharge Items Patient Disposition: Transfer [facility] Reason For Visit: Osteoarthritis Knee Right Discharge Diagnosis: Right knee osteoarthritis Activity: Per Instructions section Non-emergency contact: Surgeon Call non-emergency contact if: you have any medication questions, your pain is concerning for you, you have a fever, your temperature is above 101, your wound has increased redness and your wound has increased drainage Follow-up/Referrals: Sarbjit Ngo DO [Primary Care Provider] - Diet: Regular Addtl Attending Provider Instructions: ACTIVITY RECOMMENDATIONS: SELF CARE INSTRUCTIONS AFTER TOTAL KNEE REPLACEMENT A. You may need to continue a physical therapy program after discharge from the hospital. There are several options available to you. Your doctor will assist you in selecting the best one for you. 1. An out-patient facility 2 to 3 times a week for therapy or home therapy. 2. Continue working on all exercises taught to you in the hospital. Your goals should be to increase bending of your knee to 90 degrees and beyond and to fully straighten your knee. B. You may progress at your own pace from walking with a walker or crutches to a cane; then to no assistive devices. C. Make walking a part of your daily routine. Be up as much as comfortable with rest periods throughout the day. Rest with leg elevation is very important. Use the ice wrap frequently for the first 3-4 weeks. D. There are no restrictions on activities. You may ride in a car, shop, participate in surfboard designer and all social activities. E. Wear the long elastic stockings (CARINA hose) 20 hours a day for 2 weeks after surgery. They can be removed several times a day for laundering and for a bath. F. You may shower, no tub baths until cleared by your doctor. SPECIAL CARE INSTRUCTIONS: VERY IMPORTANT TO READ AND REVIEW A. There are a few signs you need to watch for after you are home. Call [facility] if you notice any of the followin. Increased severe knee pain. Some pain is expected especially when you exercise. 2. Increased swelling in your leg or knee; pain or swelling of the calf muscle in either lower leg. 3. Any fluid drainage from the incision. 4. Shortness of breath or chest pain. B. Please call [facility] [place] at if you have any concerns or questions about your operation or recovery. The doctor or his nurse will return your call promptly. C. You must take antibiotics before dental work, bladder, bowel or other surgery. Your doctor will provide you with a permanent care to carry describing this precaution. IMPORTANT: * REMEMBER TO TAKE ASPIRIN, 81 MG, TWICE DAILY FOR 4 WEEKS UNLESS OTHERWISE DIRECTED. THIS IS YOUR BLOOD THINNER. * HIGH RISK PATIENTS MAY BE PRESCRIBED A STRONGER BLOOD THINNER. THIS WILL BE PROVIDED AT DISCHARGE. * CALL IF INCREASED PAIN, REDNESS, DRAINAGE OR FEVER GREATER THAT 101. * WEAR CARINA HOSE 20 HOURS PER DAY FOR 2 WEEKS. This is a large suction dressing covering your incision. This will help pull any excess drainage from the wound and allow your incision to heal properly. You may shower with this if you can keep the unit outside of the shower. If any bleeding or leakage is noted please call your doctor's office. This will remain on your incision for 7 days and then should be removed. This can be done yourself or by the home nursing staff if applicable. The entire unit is disposable once removed. Once removed, keep incision clean and dry. If redness or drainage is noted, please call your surgeon. IF INCISION IS LEAKING THROUGH DRESSING, CALL THE OFFICE . FOLLOW UP VISIT: If appointment is not already scheduled: Please call [facility] to make a follow-up appointment for 2 weeks after your surgery at . Stand-Alone Forms: My [facility] Skilled Items Patient informed of condition?: Yes DNR: No Discharge Level of Care: Skilled Communicable Disease: No Discharge Prognosis: Improving Lines: None Urinary Catheter: No Medications and DC Order Prescriptions: New acetaminophen [Tylenol Extra Strength] 500 mg Tablet 1,000 mg PO Q8 Qty: 60 0RF aspirin 81 mg Tablet,Delayed Release (Dr/Ec) 81 mg PO BID Qty: 60 0RF oxycodone 5 mg Tablet 5 - 10 mg PO .Q4h-6h MDD 6 PRN (Reason: pain) Qty: 30 0RF Rx Instructions: Ongoing therapy, Dr. Martinez supervising Continued cyclobenzaprine 10 mg tablet 10 mg PO TID Qty: 270 0RF lisinopril 5 mg tablet See Rx Instructions PO DAILY Qty: 60 2RF Rx Instructions: take 2 tab in am and 1 tab in pm orally daily; albuterol sulfate [ProAir HFA] 90 mcg/actuation HFA aerosol inhaler 2 puff inhalation Q6H PRN (Reason: shortness of breath or wheezing) Qty: 8.5 0RF buspirone 5 mg tablet 10 mg PO BID Qty: 120 2RF (DME) walker with seat and wheels See Rx Instructions .Route .MEDSUPPLY Qty: 1 0RF Rx Instructions: As directed citalopram [Celexa] 40 mg tablet 40 mg PO QAM clonazepam [Klonopin] 1 mg tablet 1 mg PO QAM Rx Instructions: take 1 tablet up to twice daily as needed and one tablet at bedtime PO DAILY; omeprazole 40 mg capsule,delayed release(DR/EC) 40 mg PO DAILY PRN (Reason: Acid Reflux) pravastatin 10 mg tablet 10 mg PO QAM meclizine 25 mg tablet 12.5 mg PO TID Rx Instructions: 25 mg orally 1/2-1 tid prn; brimonidine 0.2 % Drops 1 drp OPHTHALMIC (EYE) BID Rx Instructions: administer approximately 8 hours apart Discontinued hydrocodone-acetaminophen 7.5-325 mg tablet 1 tab PO Q6H PRN (Reason: pain) Qty: 120 0RF Rx Instructions: ok to fill on 06/19/22 aspirin 81 mg tablet,delayed release (DR/EC) 81 mg PO WK Discharge Orders: Discharge Order (Routine); Ordered 08/02/22 Ordered By: Yadiel Ring Admission Data Admit Date/Time: 07/31/22 09:37 Attending Provider: Marcello Martinez Admit Provider: Marcello Martinez Primary Care Provider: Sarbjit Ngo Other Providers: Gallito Sorto [place] Other Interventions: Discharge Summary Assessment (RN) Last Done: 08/02/22 09:10
--- NOTE | 2022-08-02 10:21 | Hospitalist Progress Note ---
Date of Service August 02, 2022 Assessment & Plan (1) Status post total right knee replacement: Plan: -Pain control, perioperative abx, and DVT PPX per the primary team -The patient is currently afebrile, hemodynamically stable, and stable on RA -No intra-operative complications -Thank you for allowing us to participate in the care of this patient, please reach out with any questions or concerns (2) GERD without esophagitis: Plan: -Agree with daily pantoprazole (3) HTN (hypertension): Plan: -Stable -Can continue daily lisinopril as renal function and electrolytes remained stable postoperatively (4) Vertigo: Plan: -Can continue home meclizine, monitor for over-sedation (5) Hyperlipidemia: Plan: -Continue statin (6) Depression with anxiety: Plan: -Continue Buspar, celexa and Klonopin -Would recommend PCP attempt to wean the patient off of fdc Klonopin therapy due to the patient's age Plan Admission and Anticipated Discharge Date Admission Date: July 31, 2022 Subjective Patient feels well. Denies chest pain or shortness of breath Review of Systems Review of Systems: All systems reviewed & are unremarkable except as noted in Subjective Physical Exam Physical Exam: General: Awake, conversant Heart: S1, S2/regular rate and rhythm, no murmur rubs or gallops Lungs: Clear to auscultation bilaterally. Normal effort Abdomen: Soft/nontender/nondistended. No hepatosplenomegaly Extremities: No clubbing/cyanosis. No edema Behavior: Appropriate, cooperative Results & Data Results & Data Vital Signs (Past 12 Hours) Vital Signs Temp Pulse Resp BP Pulse Ox O2 Del Method 08/02/22 07:12 36.7 C 85 16 128/76 95 Room Air PG Care Time/CCT Total # of Minutes Spent Total Time Spent with Patient: Total time spent is greater than 50% in coordination of care (as documented) at patient's floor/unit and/or counseling patient: Coding Level of Care Code 95749 SUB INP/OBS CARE 2/35MIN Diagnoses Status post total right knee replacement Z96.651 GERD without esophagitis K21.9 HTN (hypertension) I10 Vertigo R42 Hyperlipidemia E78.5 Depression with anxiety F41.8
== END 2022-08-02 10:15 ==
LOC: ASU 04:57 → 3E 04:57

== ENCOUNTER 2023-06-11 09:01 | Observation (INO) ==
--- NOTE | 2023-05-15 14:54 | PAT Medication Instructions ---
Medication Instructions Date of Service May 15, 2023 Home Medications Medication Instructions Recorded albuterol sulfate 90 mcg/actuation 2 puff inhalation Q6H PRN 03/20/21 aerosol inhaler (ProAir HFA) shortness of breath or wheezing #8.5 grams buspirone 5 mg tablet 10 mg (2 x 5 mg) PO BID #120 tabs 09/20/21 walker with seat and wheels #1 ea 07/16/22 lisinopril 5 mg tablet 5 mg PO DAILY #60 tabs 09/10/22 mupirocin 2 % topical ointment 1 applic topical BID #22 grams 09/10/22 cyclobenzaprine 10 mg tablet 10 mg PO TID #270 tabs 03/17/23 meclizine 25 mg tablet 12.5 mg (1/2 x 25 mg) PO TID #30 03/17/23 tabs clonazepam 1 mg tablet (Klonopin) 1 mg PO QAM #30 tabs 04/15/23 hydrocodone 7.5 mg-acetaminophen 1 tab PO Q6H PRN pain #120 tabs 04/17/23 325 mg tablet albuterol sulfate 90 mcg/actuation aerosol inhaler (ProAir HFA) 2 puff inhalation Q6H PRN buspirone 5 mg tablet 10 mg (2 x 5 mg) PO BID brimonidine 0.2 % eye drops 1 drp ophthalmic (eye) BID citalopram 40 mg tablet (Celexa) 40 mg PO QAM omeprazole 40 mg capsule,delayed release 40 mg PO DAILY PRN pravastatin 10 mg tablet 10 mg PO QAM aspirin 81 mg tablet,delayed release 81 mg PO UD lisinopril 5 mg tablet 5 mg PO DAILY mupirocin 2 % topical ointment 1 applic topical BID cyclobenzaprine 10 mg tablet 10 mg PO TID meclizine 25 mg tablet 12.5 mg (1/2 x 25 mg) PO TID clonazepam 1 mg tablet (Klonopin) 1 mg PO QAM acetaminophen 500 mg tablet (Tylenol Extra Strength) 1,000 mg PO Q8 PRN hydrocodone 7.5 mg-acetaminophen 325 mg tablet 1 tab PO Q6H PRN nystatin 100,000 unit/gram topical cream 1 applic topical BID PRN CBD Gummy 1 dose PO HS ASK your prescriber and surgeon aspirin 81 mg tablet,delayed release 81 mg PO UD STOP taking 24 hours before surgery mupirocin 2 % topical ointment 1 applic topical BID nystatin 100,000 unit/gram topical cream 1 applic topical BID PRN CBD Gummy 1 dose PO HS DO NOT take the morning of surgery lisinopril 5 mg tablet 5 mg PO DAILY Take morning of surgery With a small sip of water, OTHERWISE NOTHING TO EAT OR DRINK AFTER MIDNIGHT: albuterol sulfate 90 mcg/actuation aerosol inhaler (ProAir HFA) 2 puff inhalation Q6H PRN(use if needed; please bring with you to hospital day of surgery if possible) buspirone 5 mg tablet 10 mg (2 x 5 mg) PO BID brimonidine 0.2 % eye drops 1 drp ophthalmic (eye) BID citalopram 40 mg tablet (Celexa) 40 mg PO QAM omeprazole 40 mg capsule,delayed release 40 mg PO DAILY PRN(if needed) pravastatin 10 mg tablet 10 mg PO QAM cyclobenzaprine 10 mg tablet 10 mg PO TID meclizine 25 mg tablet 12.5 mg (1/2 x 25 mg) PO TID clonazepam 1 mg tablet (Klonopin) 1 mg PO QAM acetaminophen 500 mg tablet (Tylenol Extra Strength) 1,000 mg PO Q8 PRN(if needed) hydrocodone 7.5 mg-acetaminophen 325 mg tablet 1 tab PO Q6H PRN(if needed) Take evening before surgery buspirone 5 mg tablet 10 mg (2 x 5 mg) PO BID brimonidine 0.2 % eye drops 1 drp ophthalmic (eye) BID cyclobenzaprine 10 mg tablet 10 mg PO TID meclizine 25 mg tablet 12.5 mg (1/2 x 25 mg) PO TID albuterol sulfate 90 mcg/actuation aerosol inhaler (ProAir HFA) 2 puff inhalation Q6H PRN(if needed) acetaminophen 500 mg tablet (Tylenol Extra Strength) 1,000 mg PO Q8 PRN(if needed) hydrocodone 7.5 mg-acetaminophen 325 mg tablet 1 tab PO Q6H PRN(if needed) Other Notes If you have any questions please call us at [phone] or [phone] or [phone] or [phone]
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
--- NOTE | 2023-06-07 10:45 | History & Physical Report ---
Date of Service June 07, 2023 Assessment & Plan (1) Arthritis of left hip: 82-year-old female status post a right knee replacement in the past with advanced left hip arthritis. She is failed conservative measures. She become more debilitated by this over time. She is ready have her left hip fixed. Plan: Orgkatelynn to proceed with left total hip replacement. The risk and benefit of this procedure explained the patient include but not limited to DVT PE infection neurological and vascular bleeding palm pain limb range of motion test is fairly her symptoms incomplete relief of symptoms. The patient understands and desires to proceed. Informed consent was obtained. She does have seeing a back problem and takes some chronic narcotics as a result. This [place] affects her back problems. As far as discharge plan she is hoping to go to [place] like she did after her knee replacement. Her daughter will assist in her care. Will plan on DVT prophylaxis including aspirin, thigh-high teds, SCDs. (2) Status post total right knee replacement: History of Present Illness Chief Complaint: . Left hip pain. Primary Care Provider: Sarbjit Ngo DO . Patient is an 82-year-old female with a year and a half history of increasing left hip pain discomfort is gradually gotten worse over time. She is actually had to use a cane for the past 7 months or so. She been treated by Dr. Candelaria in the past. Not exactly sure what was done. She seen Dr. Castro. Conservative care is failed. She like to have her hip fixed. The patient does have a history of right knee replacement and done by Dr. Patino in July of last year. She recovered pretty nicely from this and she went to [place]. Allergies Allergy/AdvReac Type Severity Reaction Status Date / Time Penicillins Allergy Intermediate Hives Verified 05/15/23 12:13 Sulfa (Sulfonamide Allergy Intermediate Hives Verified 05/15/23 12:13 Antibiotics) Home Medications Medication Instructions Recorded Confirmed Type albuterol sulfate 90 mcg/actuation 2 puff inhalation Q6H PRN 03/20/21 05/15/23 Rx aerosol inhaler (ProAir HFA) shortness of breath or wheezing #8.5 grams buspirone 5 mg tablet 10 mg (2 x 5 mg) PO BID #120 tabs 09/20/21 05/15/23 Rx brimonidine 0.2 % eye drops 1 drp ophthalmic (eye) BID 07/15/22 05/15/23 History citalopram 40 mg tablet (Celexa) 40 mg PO QAM 07/15/22 05/15/23 History omeprazole 40 mg capsule,delayed 40 mg PO DAILY PRN Acid Reflux 07/15/22 05/15/23 History release pravastatin 10 mg tablet 10 mg PO QAM 07/15/22 05/15/23 History walker with seat and wheels #1 ea 07/16/22 04/17/23 Rx aspirin 81 mg tablet,delayed 81 mg PO UD 08/14/22 05/15/23 History release lisinopril 5 mg tablet 5 mg PO DAILY #60 tabs 09/10/22 05/15/23 Rx mupirocin 2 % topical ointment 1 applic topical BID #22 grams 09/10/22 05/15/23 Rx cyclobenzaprine 10 mg tablet 10 mg PO TID #270 tabs 03/17/23 05/15/23 Rx meclizine 25 mg tablet 12.5 mg (1/2 x 25 mg) PO TID #30 03/17/23 05/15/23 Rx tabs clonazepam 1 mg tablet (Klonopin) 1 mg PO QAM #30 tabs 04/15/23 05/15/23 Rx acetaminophen 500 mg tablet 1,000 mg PO Q8 PRN Pain 04/17/23 05/15/23 History (Tylenol Extra Strength) nystatin 100,000 unit/gram topical 1 applic topical BID PRN Skin 04/17/23 05/15/23 History cream Irritation CBD Gummy 1 dose PO HS 04/18/23 05/15/23 History hydrocodone 7.5 mg-acetaminophen 1 tab PO Q6H PRN pain #120 tabs 05/19/23 Rx 325 mg tablet Past Med/Surg History Medical History Hearing loss chronic History of blood transfusion roxann-operatively with tonsillectomy Mild asthma rarely uses inhaler, "only when going up steps" Cerebral microvascular disease PCP monitoring, plan for future neuro evaluation Glaucoma Macular degeneration Vertigo Unsteady gait when walking HTN (hypertension) controlled, stable per pt GERD without esophagitis controlled, stable per pt Chronic back pain stable per pt-denies acute change or worsening Depression with anxiety Hyperlipidemia Surgical History History of arthroscopy of right knee 07/31/2022 History of surgery gallstones removal (denies cholecystectomy) History of arthroscopy of left knee meniscus repair History of bilateral tubal ligation History of carpal tunnel surgery of left wrist History of tooth extraction all upper teeth removed History of bilateral cataract extraction S/P pericardial window creation 2001 History of tonsillectomy and adenoidectomy History of hysterectomy History of colonoscopy Family History Son Stroke Daughter Colitis Father Diabetes Mother Colorectal cancer Aunt Breast cancer Grandmother (Maternal) Myocardial infarction Other No family history of adverse response to anesthesia Denies family history of Ovarian cancer Prostate cancer Social History Smoking Status: Never smoker Second Hand Exposure: Yes (Coworkers smoked); Do You Dip or Chew Tobacco: No; Hx Alcohol Use: Yes Alcohol type: wine Alcohol Intake Frequency: Monthly or Less Alcohol Intake Frequency Comment: very rarely Hx Substance Use: No Preferred Language: Serbian Communication Ability: Effective Visual Impairment: Limited Hearing Ability: Normal Oncology Nurse Required: No Beliefs That Will Affect Care: None marital status: Single Current Living Situation: Family Current Living Situation Comment: Lives with daughter current occupational status: retired current occupation: part-time at restaurant How many Children do You have: 3 Feels Safe at Home: Yes Childhood Exposure to Second-Hand Smoke: No Diet: regular Diet Comment: Regular diet caffeine: Yes (coffee, mint tea) during the past year weight has: decreased > 10 lbs Dental Care, Regularly: Yes Physical Activity Frequency: 3-4 Times per Week Physical Activity Frequency Comment: Works at a restraunt 4 days a week Seatbelt Use: always Sunscreen Use: Yes Do you think of yourself as: straight/heterosexual Gender Identity: Female Assistive Devices: Cane, Denture - Upper and Glasses Review of Systems All systems reviewed & are unremarkable except as noted in HPI & below. Physical Exam . Physical examination reveals a pleasant elderly frail female. Examination left hip reveal patient walks with a markedly antalgic gait. She uses a cane to walk. Leg lengths appear pretty equal. She got marked pain with any type of hip motion and internal rotation at best. This recreates her hip pain. No knee effusion. Negative straight leg raise. She is neurologically intact. Constitutional WD/WN, vitals as above Respiratory normal respiratory effort, lungs clear to auscultation Cardiovascular RRR, no murmur, no edema Gastrointestinal (Abdomen) normal bowel sounds, soft, nontender, no hepatosplenomegaly Results & Data Results & Data Laboratory Results . Diagnostic Findings . X-rays of the left hip were reviewed. Shows fairly advanced concentric hip arthritis. She got concentric loss of the joint space. She has cystic change on both sides the joint and osteophytes particular around the acetabulum. PG Care Time/CCT Total # of Minutes Spent Total Time Spent with Patient: Total time spent is greater than 50% in coordination of care (as documented) at patient's floor/unit and/or counseling patient: Coding Level of Care Code None Diagnoses Arthritis of left hip M16.12 Status post total right knee replacement Z96.651
[~2023-06-11 09:01] MED LIST: BUPIVACAINE 0.5 % 5 MG/1 ML PF 10ML VIAL ONE; Nursing to Pharmacy Communication SCH
[2023-06-11] MEDS: LR 60ML/HR IV SCH (09:43)
[2023-06-11] MEDS: LR 500ML BOLUS, THEN 15ML/HR IV SCH (09:43)
[2023-06-11] MEDS: dexAMETHasone**PF** 10 MG/ML VIAL IV SCH (09:44)
[2023-06-11] MEDS: CeleBREX 200 MG CAP PO SCH (09:44)
[2023-06-11] MEDS: METOCLOPRAMIDE HCL 10 MG TABLET PO SCH (09:44)
[2023-06-11] MEDS: ACETAMINOPHEN 500 MG TAB PO SCH ×2 (09:44→14:39)
[2023-06-11] MEDS: FAMOTIDINE 20 MG TAB PO SCH (09:44)
[2023-06-11] MEDS ORDERED: PROPOFOL IV EMULSION 10 MG/ML 20 ML VIAL IV ONE (10:15)
[2023-06-11] MEDS ORDERED: ONDANSETRON INJ 2 MG/ML 2 ML VIAL ONE (10:15)
[2023-06-11] MEDS ORDERED: fentaNYL citrate PF 100 MCG/2 ML VIAL ONE (10:15)
[2023-06-11] MEDS ORDERED: MIDAZOLAM HCL 1 MG/ML 2ML VIAL ONE (10:15)
[2023-06-11] MEDS ORDERED: ONDANSETRON INJ 2 MG/ML 2 ML VIAL IV PRN ×2 (10:23→14:08)
[2023-06-11] MEDS ORDERED: ATROPINE SULFATE 0.1 MG/ML 10ML SYR IV PRN (10:23)
[2023-06-11] MEDS ORDERED: PROMETHAZINE HCL 6.25 MG in SODIUM CHLORIDE 0.9% 50 ML IV PRN (10:23)
[2023-06-11] MEDS ORDERED: HYDROmorphone INJ 2 MG/ML SYR/VIAL IV PRN (10:23)
[2023-06-11] MEDS ORDERED: ePHEDrine sulfate 50 MG/ML AMP IV PRN (10:23)
[2023-06-11] MEDS ORDERED: fentaNYL citrate PF 100 MCG/2 ML VIAL IV PRN (10:23)
[2023-06-11] MEDS: TRANEXAMIC ACID 1,000 MG **IV Pre-op IV SCH (10:54)
--- NOTE | 2023-06-11 11:01 | History & Physical Bridge Note ---
Date of Service June 11, 2023 History & Physical Bridge Note I have examined the patient, reviewed the History & Physical and in the interval since the performance of the History & Physical I have noted the following changes of clinical significance: no changes noted
[2023-06-11] MEDS: ceFAZolin 2000MG 2,000 MG/15 ML SYR IV SCH (11:07)
[2023-06-11] MEDS ORDERED: PHENYLEPHRINE 100MCG/ML 10ML SYR IV ONE (11:30)
[2023-06-11] MEDS ORDERED: ePHEDrine sulfate 50 MG/5 ML SYR ONE (11:45)
[2023-06-11] MEDS: BUPIVACAINE/EPINEPHRINE 0.5% MPF 1:200,000 30 ML VIAL ONE (12:05)
--- NOTE | 2023-06-11 12:47 | Operative Report ---
PG Post Operative Report Pre & Post Diagnosis Operation Date: 06/11/23 10:40 Pre-Op Diagnosis: Left Hip Degenerative Joint Disease Post-Op Diagnosis: Left Hip Degenerative Joint Disease I identified the patient and participated in the time-out.: Yes Procedure Operation Date: 06/11/23 10:40 Actual Procedures p Left Total Hip Arthroplasty(Left) - Adelfo Andujar MD Surgeon Adelfo Andujar MD [employer] Treasury Director Ángel Gutierrez PA-C Estimated Blood Loss 200 Findings Consistent with Post-Op Diagnosis Operative findings were advanced left hip DJD. She had extensive grade 4 [id number] disease the femoral head and acetabulum. There was fairly inflammatory looking and that her cartilage was eroded but not a lot of osteophyte formation. She had a little bit of protrusio of her acetabulum. Moderate-sized joint effusion. Specimens Left femoral head sent for pathology. Anesthesia Type Spinal MAC Complications none Disposition Accompanied Patient To Recovery: No Indications Patient is a 82-year-old female is here several year history of increasing left hip pain discomfort describes it at the point where she had use a cane to get around. X-rays show advanced hip arthritis. She elected proceed with surgical management. Description of Procedure Operative implants consist of: 1. Biomet G7 size 56 mm acetabular shell. 2. [place] hole ritual circumciser 3. 6.5 cancellous acetabular screws 1 of 35 mm length 1 to 25 mm length. 4. Highly cross-linked polyethylene liner with a 56 mm outer diameter and 40 mm inner diameter. 5. DePuy [place] size 11 KLA femoral stem. 6. +5/40 mm ceramic articular ball. The patient was taken the operating, identified, placed on the operating table in the supine position. All contact areas were appropriately padded. IV antibiotics tried by anesthesia team. A spinal anesthetic had been implemented holding area. A Hong catheter was placed in sterile fashion. The patient then placed in the right lateral decubitus position. An axillary roll was placed. Distal Birkett position was used for positioning. The left hip and leg were then prepped and draped in usual sterile fashion. A posterolateral approach to the left hip was then performed through a curvilinear incision centered over the greater trochanter. Sharp dissection carried through subcutaneous tissue down to level the IT band gluteal fascia but the IT band gluteal fascia was sized longitudinally in line with skin incision. The underlying greater bursa was excised. The piriformis and external rotators were tagged and taken off the posterior aspect of the hip along with the posterior hip joint capsule. Great care was taken throughout the procedure protect the sciatic nerve at all times. Hip was internally rotated and dislocated. A femoral neck osteotomy cut was made with a Final Cut about 10 mm above the lesser trochanter. Femoral head was removed and sent for pathology. The femur was retracted anteriorly. Attention drawn the acetabulum. The acetabular labrum was excised. The pulmonary fat was excised. Sequential reaming the acetabular was then performed beginning with a size 45 and progressing up to a 55. We did not really ream medially at all due to her her protrusio appearance of the acetabulum. I did ream a little bit with a 56 reamer and then placed a 56 mm G7 acetabular shell with about 40 degrees lateral opening and 20 degrees of anteversion. It was fixed with two 6.5 cancellous acetabular screws. Trial liner was placed. Attention drawn the femur. The proximal femur was entered with a cookie cutter followed by canal finder. I then broached beginning with a size 8 and progressing up to 11. Get excellent fit 11. We then trialed the hip and the +5 articular ball provide full stability in full extension and external rotation and flexion to 90 degrees internal Tatian over 50 degrees. Leg lengths appear equal. I would like to place these implants. All trial implants were removed. [place] hole ritual circumciser was placed. Highly cross- linked polyethylene liner was placed. A size 11 KLA femoral stem was impacted in position. A +5/40 mm ceramic articular ball was placed. Hip was located and once again found to be stable. Attention drawn toward closing. The wound was irrigated coconuts pulsatile lavage solution. I did inject locally with 60 cc of half percent Marcaine with epinephrine. The posterior capsule and external rotators were then repaired through drill holes in the posterior trochanter as a single layer with #2 Tycron suture. The IT band gluteal fascia then closed in 1 PDS suture in a running fashion. The subcutaneous tissues were then closed with 2 layers of the deep layer #1 Vicryl suture in the subcutaneous tissues with 2-0 Dexon suture in a buried interrupted fashion. Skin was closed skin tico. Leg was then cleaned and dried a sterile dressing was Xeroform, 4 fours, ABD pad and foam tape was applied. The patient then transferred to the recovery room in stable condition. The patient tolerated the procedure well and there were no complications. Ángel Gutierrez, my physician assistant buyer, was present for the entire procedure. His assistance was essential and required for appropriate patient positioning, prepping and draping, surgical exposure, performing the technical details of the operation, placement the implants, closure of the wound, and placement of the sterile bandage. I attest to the content of the Intraoperative Record and any orders documented therein. Any exceptions are noted below.
--- NOTE | 2023-06-11 13:12 | Anesthesiology Progress Note ---
Date of Service June 11, 2023 Anesthesia Post Procedure Vital Signs Vital Signs: Temp Pulse Pulse Resp BP Pulse Ox O2 Del Method 06/11/23 13:00 93 H 16 110/85 98 Room Air 06/11/23 12:50 91 H 16 137/74 95 Room Air 06/11/23 12:40 92 H 12 144/75 H 100 Room Air 06/11/23 12:32 36.4 C L 92 H 24 138/69 98 Room Air 06/11/23 09:29 36.6 C 102 H 16 164/80 H 93 Room Air Pain Intensity Left Hip: Pain Intensity: 10 Transfer of Care Handoff Completed per policy Notes Mental Status: alert / awake / arousable and participated in evaluation Nausea / Vomiting: adequately controlled Pain: adequately controlled Airway Patency, RR, SpO2: stable & adequate BP & HR: stable & adequate Hydration State: stable & adequate Neuraxial Anesthesia: was administered and sensory block is resolving Anesthetic Complications: no major complications apparent and Pt Satisfied with anesthetic care
[2023-06-11] MEDS ORDERED: bisacodyL 10 MG SUPP PR PRN (14:08)
[2023-06-11] MEDS ORDERED: MAGNESIUM HYDROXIDE SUSP 30 ML UDC PO PRN (14:08)
[2023-06-11] MEDS ORDERED: ALBUTEROL HFA 8 GM INHALER INH PRN (14:08)
[2023-06-11] MEDS ORDERED: METOCLOPRAMIDE HCL INJ 5 MG/ML 2 ML VIAL IV PRN (14:08)
[2023-06-11] MEDS ORDERED: MECLIZINE 12.5 MG TAB PO PRN (14:08)
[2023-06-11] MEDS ORDERED: NYSTATIN CR 15 GM TUBE EXT PRN (14:08)
[2023-06-11] MEDS ORDERED: traMADol HCL 50 MG TABLET PO PRN (14:08)
[2023-06-11] MEDS ORDERED: NALOXONE HCL 0.4 MG/1 ML VIAL/CARP IV PRN (14:08)
[2023-06-11] MEDS ORDERED: ALUMINUM/MAGNESIUM SUSP 30 ML UDC PO PRN (14:08)
--- NOTE | 2023-06-11 14:08 | XRay Report ---
XR hip 1V LT w pelvis CLINICAL HISTORY: IN PACU - Post Surgical TECHNIQUE: 1 view of the left hip and single frontal view of the pelvis were obtained. Comparison: Comparison is made to CT pelvis 01/29/2023 FINDINGS: Patient is status post total hip arthroplasty with expected postsurgical changes including soft tissu e swelling and subcutaneous emphysema. IMPRESSION: Expected postoperative appearance status post placement of total hip arthroplasty. ACT 112: Negative or not required by law. Electronically signed by: Brice Black M.D. 06/11/2023 2:07 PM
[2023-06-11] MEDS ORDERED: PANTOprazole 40 MG TAB PO PRN (14:18)
[2023-06-11] MEDS: SODIUM CHLORIDE 0.9% 1,000 ML IV SCH (14:30)
[2023-06-11] MEDS: KETOROLAC TROMETHAMINE 15 MG/ML VIAL IV SCH (14:39)
[2023-06-11] MEDS: CYCLOBENZAPRINE HCL 10 MG TAB PO SCH (15:06)
[2023-06-11] MEDS: HYDROmorphone INJ 0.5 MG/0.5 ML SYR IV PRN (16:32)
[2023-06-11] MEDS: ASCORBIC ACID 500 MG TAB PO SCH (17:21)
[2023-06-11] MEDS: TRANEXAMIC ACID / 0.7% NACL 1,000 MG/100 ML BAG IV SCH (17:21)
[2023-06-11] MEDS: oxyCODONE HCL IR 5 MG TAB (IMMEDIATE RELEASE) PO PRN (17:29)
[2023-06-11] MEDS: ceFAZolin 1000MG 1,000 MG/7.5 ML SYR IV SCH (17:32)
[2023-06-11] MEDS: ASPIRIN 81 MG ECTAB PO SCH (20:06)
[2023-06-11] MEDS: BRIMONIDINE TARTRATE 0.2% 5ML OP SCH (20:06)
[2023-06-11] MEDS: SENNA 8.6 MG TAB PO SCH (20:07)
[2023-06-11] MEDS: busPIRone 5 MG TAB PO SCH (20:07)
[2023-06-11] MEDS: DOCUSATE SODIUM 100 MG CAP PO SCH (20:07)
[2023-06-11] MEDS: clonazePAM 1 MG TAB PO SCH (20:07)
[2023-06-11] MEDS: MUPIROCIN 2% OINT 22 GM TUBE TOP SCH (20:07)
[2023-06-11] MEDS ORDERED: CBD GUMMY PO SCH (21:00)
--- NOTE | 2023-06-12 07:09 | Surgery Progress Note ---
Date of Service June 12, 2023 Assessment & Plan (1) Status post left hip replacement: Plan: 82-year-old female postop day 1 from a left hip replacement doing well. Her pain is controlled. She is neurologically intact. She is hoping to go to rehab. Plan: 1 DVT prophylaxis including thigh-high teds, SCDs, aspirin twice a day. 2. PT/OT. Weight-bear as tolerated. Left total hip protocol. 3. Pain control done okay with current pain regimen. 4. Disposition plan to discharge to rehab if accepted and approved. Admission and Anticipated Discharge Date Admission Date: June 11, 2023 Subjective 82-year-old female postop day 1 from left total hip placement. She is doing pretty well this morning. Did not get a whole lot of sleep. Pain is controlled. No chest pain or shortness of breath. Not feeling dizzy or lightheaded. Physical Exam Physical Exam: Physical examination is a pleasant elderly female. Lying bed looks comfortable. She is awake alert and oriented. Examination of the left leg reveals the dressing be clean dry and intact. Thigh is soft and supple. Leg lengths are equal. She is neurologically intact. Respiratory: normal respiratory effort, lungs clear to auscultation Cardiovascular: RRR, no murmur, no edema Gastrointestinal (Abdomen): normal bowel sounds, soft, nontender, no hepatosplenomegaly Results & Data Vital Signs (Past 12 Hours) Vital Signs Temp Pulse Resp BP Pulse Ox O2 Del Method 06/12/23 02:30 135/82 06/12/23 02:10 36.4 C L 85 18 162/83 H 97 Room Air 06/11/23 23:17 36.9 C 83 18 115/71 95 Room Air 06/11/23 19:34 36.6 C 91 H 18 132/86 95 Room Air Laboratory Results Laboratory results are pending PG Care Time/CCT Total # of Minutes Spent Total Time Spent with Patient: Total time spent is greater than 50% in coordination of care (as documented) at patient's floor/unit and/or counseling patient: Coding Level of Care Code 23078 Post Operative Follow-Up Diagnoses Status post left hip replacement Z96.642
[2023-06-12 07:25] LABS: Basophils # (auto) 0.02 K/uL (0.00-0.20); Basophils % (auto) 0.2 %; Eosinophils # (auto) 0.01 K/uL (0.00-0.50); Eosinophils % (auto) 0.1 %; Hematocrit (blood only) 35.4 % (37.0-47.0); Hemoglobin 11.4 g/dl (12.0-16.0); Immature Granulocytes # (auto) 0.03 K/uL (0.01-0.20); Immature Granulocytes % (auto) 0.3 %; Lymphocytes # (auto) 1.29 K/uL (1.20-3.40); Lymphocytes % (auto) 12.8 %; Mean Corpuscular Hemoglobin 28.4 pg (25.0-34.0); Mean Corpuscular Hgb Conc 32.2 g/dL (32.0-36.0); Mean Corpuscular Volume 88.1 fL (80.0-100.0); Mean Platelet Volume 10.8 fL (9.4-12.4); Monocytes # (auto) 0.83 K/uL (0.11-0.59); Monocytes % (auto) 8.3 %; Neutrophils # (auto) 7.88 K/uL (1.40-6.50); Neutrophils % (auto) 78.3 %; Platelet Count 211 K/uL (130-400); RDW Coefficient of Variation 13.7 % (11.5-14.5); RDW Standard Deviation 44.5 fL (36.4-46.3); Red Blood Count 4.02 M/uL (4.20-5.40); White Blood Count 10.06 K/ul (4.8-10.8)
[2023-06-12 07:48] LABS: BUN Creatinine Ratio 13.8 (10-20); Calcium 8.9 mg/dl (8.6-10.3); Creatinine Clr Calc Pharmacy 48.8 ml/min; Est GFR (African American) 65.9 ml/min; Est GFR (Non-African American) 56.9 ml/min; Potassium 4.1 mmol/L (3.5-5.1)
[2023-06-12] MEDS: dexAMETHasone 10 MG in SYRINGE 0 ML IV SCH (08:02)
[2023-06-12] MEDS: PRAVASTATIN SOD 10 MG TAB PO SCH (08:02)
[2023-06-12] MEDS: CITALOPRAM 40 MG TAB PO SCH (08:02)
[2023-06-12] MEDS: MULTIVITAMIN TAB PO SCH (08:03)
[2023-06-12] MEDS: lisinopril 5 MG TAB PO SCH (08:03)
--- NOTE | 2023-06-13 09:14 | Surgery Progress Note ---
Date of Service June 13, 2023 Assessment & Plan (1) Status post left hip replacement: Plan: 82-year-old female postop day 2 from a left hip replacement doing well. Pain is controlled. Hips located. She is neurologically intact. She is decided she wants to go to home and not to rehab or intermediate facility. She has family that can assist in her care. Plan 1. DVT prophylaxis including thigh-high teds, SCDs, aspirin twice a day. 2. PT/OT. Will get her therapy this morning make sure things are going okay. 3. Pain control. Doing well with current pain regimen. 4. Disposition she is planned to be discharged to home with some home health Admission and Anticipated Discharge Date Admission Date: June 11, 2023 Subjective 82-year-old female postop day 2 from a left hip replacement. She is doing pretty well. Denies any significant pain. No chest pain or shortness of breath. Therapy is going well. She is decided she wants to go home. The initial plan was to go to [facility] but she like to go home. She done well in therapy. Physical Exam Physical Exam: Physical examination was a pleasant elderly female. She is walk around the room with a wheeled walker doing quite well with this morning. Examination left hip reveals the dressing be clean dry and intact. Thigh is soft and supple. Leg lengths are equal. She is neurologically intact. Results & Data Vital Signs (Past 12 Hours) Vital Signs Temp Pulse Resp BP Pulse Ox O2 Del Method 06/13/23 08:21 36.7 C 86 16 144/92 H 97 Room Air PG Care Time/CCT Total # of Minutes Spent Total Time Spent with Patient: Total time spent is greater than 50% in coordination of care (as documented) at patient's floor/unit and/or counseling patient: Coding Level of Care Code 74286 Post Operative Follow-Up Diagnoses Status post left hip replacement Z96.642
--- NOTE | 2023-06-17 06:36 | Discharge Summary ---
Date of Service June 17, 2023 Discharge Data Procedures Performed Operation Date: 06/11/23 10:40 Actual Procedures p Left Total Hip Arthroplasty(Left) - Adelfo Andujar MD Hospital Course (1) Status post left hip replacement: This is a 82 year old patient admitted on 06/11/23 and underwent total hip arthroplasty. She tolerated the procedure well and there were no complications. Transferred to the PACU post op and later to the orthopedic floor for further care. She was given ancef for antibiotic prophylaxis. She was also given CARINA stockings, SCDs, and aspirin for DVT prophylaxis. Hemoglobin, hematocrit, and vital signs were monitored during her hospital stay and remained stable. Did not require any blood transfusions. There were no complications during her hospital stay. By post op day #2 the patient was tolerating a regular diet, pain was reasonably controlled with oral pain medicine, and she was participating in physical therapy. On post op day #2 the patient was discharged home and set up with home health care. She was given printed discharge instructions including prescriptions for extra strength tylenol, aspirin, oxycodone, and senokot. Continue hip precautions. Continue physical therapy, weight bearing as tolerated. Continue CARINA stockings. Follow up approximately 2 weeks post op or sooner if there are problems or concerns. Coding Level of Care Code None Diagnoses Status post left hip replacement Z96.642
== END 2023-06-13 12:48 | disposition home health service (06) ==
LOC: 3E 09:01 → ASU 09:01
DX: Z88.2 Allergy status to sulfonamides; Z79.82 Long term (current) use of aspirin; Z79.899 Other long term (current) drug therapy; M16.12 Unilateral primary osteoarthritis, left hip; Z88.0 Allergy status to penicillin